=== PATIENT | female | born 1995 | race African-American/Black ===

== ENCOUNTER 2019-12-07 10:56 | Emergency (ER) | payer MEDICAID, OTHER ==
[~2019-12-07] VITALS: Ht 152.4 cm; Wt 50.0 kg
[2019-12-07 10:58] VITALS: BP 114/76
== END 2019-12-07 11:57 | disposition home or self-care (01) ==
LOC: ER 10:56
DX: M54.6 Pain in thoracic spine (principal); V49.88XA Car occupant (driver) (passenger) injured in other specified transport accidents, initial encounter; Y93.89 Activity, other specified; Y92.89 Other specified places as the place of occurrence of the external cause; Y99.8 Other external cause status
CPT/HCPCS: 99283